=== PATIENT | female | born 1990 | race Caucasian/White ===

== ENCOUNTER → 2023-08-08 09:57 | Outpatient (BNVA) | payer OTHER, SELFPAY | PROVIDERS: Visit Provider Internal Medicine | DX: E07.9 Disorder of thyroid, unspecified (principal); R63.5 Abnormal weight gain; R53.83 Other fatigue | CPT/HCPCS: 36415; 84305; 84439; 84443; 86376; 86800 ==

== ENCOUNTER 2024-08-13 07:39 | Outpatient (CLI) | payer OTHER, SELFPAY ==
--- NOTE | 2024-08-13 07:52 | MR_ITS ---
WS: [id number] MRI RIGHT KNEE NONCONTRAST TECHNIQUE: Axial PD, coronal PD fat sat, coronal PD, sagittal PD, and sagittal PD fat-sat images obtained. CLINICAL INFORMATION: RIGHT KNEE PAIN COMPARISON: None. FINDINGS: Distal quadriceps and patellar tendons are intact. Hypertrophic patella. High- grade complete tear of the ACL. PCL appears intact. Bony fragments along the tibial eminence laterally has a chronic appearance on the prior radiograph presumably from prior ACL avulsion. Chronic thinning of the medial and lateral meniscus. Small suprapatellar effusion. Small tear along the posterior horn medial meniscus at the capsular insertion. Mild chondromalacia patella. Medial and lateral patellar retinacula appear intact. Edema in the popliteal fossa. Suspected partial tear of the popliteus with fluid in the popliteal fossa. Recommend correlation for posterolateral corner injury. Lateral collateral ligament appears intact. Normal medial c ollateral ligament. MR/MR knee RT wo con* [id number] IMPRESSION: 1. High-grade complete tear of the ACL. Normal PCL. 2. Osseous fragments along the tibial eminence likely due to prior ACL avulsio n. These appear well-corticated on the prior radiograph. 3. Partial tear involving the popliteus with fluid in the popliteal fossa. Rec ommend correlation for posterolateral corner injury. 4. Small tear involving the posterior horn medial meniscus at the capsular ins ertion. 5. Mild chondromalacia patella. Small suprapatellar effusion Outbridge grading: grade II: blister-like swelling/fraying of articular cartila ge extending to surface
== END 2024-08-13 07:40 | disposition home or self-care (01) ==
PROVIDERS: Visit Provider Nurse Practitioner Family
DX: S83.511A Sprain of anterior cruciate ligament of right knee, initial encounter (principal); S83.241A Other tear of medial meniscus, current injury, right knee, initial encounter; X58.XXXA Exposure to other specified factors, initial encounter; R93.6 Abnormal findings on diagnostic imaging of limbs; M22.41 Chondromalacia patellae, right knee; M25.461 Effusion, right knee; M89.38 Hypertrophy of bone, other site
CPT/HCPCS: 73721

== ENCOUNTER → 2024-08-15 08:33 | Outpatient (BNVA) | payer OTHER, SELFPAY | PROVIDERS: PCP Nurse Practitioner Family; Visit Provider Specialist | DX: M25.561 Pain in right knee (principal); S83.511A Sprain of anterior cruciate ligament of right knee, initial encounter; X58.XXXA Exposure to other specified factors, initial encounter | CPT/HCPCS: 73560; 73565 ==

== ENCOUNTER 2024-08-15 11:41 | Outpatient (CLI) | payer OTHER, SELFPAY | END 2024-08-15 11:42 | disposition home or self-care (01) | LOC: SPT 11:42 | PROVIDERS: PCP Nurse Practitioner Family; Visit Provider Specialist | DX: Z46.89 Encounter for fitting and adjustment of other specified devices (principal); S83.511D Sprain of anterior cruciate ligament of right knee, subsequent encounter; X58.XXXD Exposure to other specified factors, subsequent encounter | CPT/HCPCS: L1812 ==

== ENCOUNTER → 2024-09-27 06:27 | Day surgery (SDC) | payer OTHER, SELFPAY ==
[2024-09-27] VITALS (10 sets, daily range): BP systolic 96–122; BP diastolic 56–76; PULSE 90–104; RESP 10–18; TEMP 36.8–36.9; O2SAT 93–100; BMI 31.1
--- NOTE | 2024-09-27 06:53 | W.PM.OPSUD ---
Surgery/Procedure H&P Update DATE OF PROCEDURE: September 27, 2024 DATE H&P PERFORMED: 08/29/24 H&P UPDATE INFORMATION: I have reviewed H&P completed within last 30 days, I have examined patient prior to procedure and No changes to prior documentation PREOP DIAGNOSIS: Right knee complete ACL tear, medial meniscus tear PRIMARY INDICATION FOR PROCEDURE: Right knee complete ACL tear, medial meniscus tear PLANNED PROCEDURE: Operation Date: 09/27/24 09:30 Proposed Procedures p Knee Arthroscopy Knee Arthroscopy w/ Medial Menisectomy vs repair(Right) - DO tristan Rdz ACL Repair Anterior Cruciate Ligament Reconstruction(Right) - Yasir Osullivan DO
[2024-09-27] MEDS: sodium chloride 0.9% 1,000 ML 30 ML IV (07:02)
[2024-09-27] MEDS: scopolamine 1 mg PATCH 1 PATCH TRANSDERMA (07:02)
[2024-09-27] MEDS: acetaminophen 1,000 MG/100 ML PIGGYBACK 400 MG IV (07:03)
[2024-09-27] MEDS: ketorolac 30 mg/mL INJ IVP (07:03)
[2024-09-27 07:32] LABS: OR HCG Qualitative Urine Negative (Negative)
--- NOTE | 2024-09-27 08:53 | P.ANESASSM_ITS ---
Pre-Anesthetic Assessment Height/Weight: Height 5 ft 1 in Weight 165 lb Temp Pulse Resp BP Pulse Ox O2 Del Method 98.3 F 91 18 116/75 100 Room Air 09/27/24 06:46 09/27/24 06:46 09/27/24 06:46 09/27/24 06:46 09/27/24 06:46 09/27/24 06:46 Preop Diagnosis: Right knee complete ACL tear, medial meniscus tear Operation Date: 09/27/24 09:30 Proposed Procedures p Knee Arthroscopy Knee Arthroscopy w/ Medial Menisectomy vs repair(Right) - Yasir Osullivan DO s ACL Repair Anterior Cruciate Ligament Reconstruction(Right) - Yasir Osullivan DO Was Beta Les taken within 24 hours: N/A Was Clonidine taken within 24 hours: N/A Social No alcohol and No tobacco Exam alert, oriented x 3, clear to auscultation bilaterally and regular rate & rhythm Airway Submandibular: within normal limits Cervical ROM: within normal limits Mallampati: Class II Dentition: full Anesthetic Plan ASA status: 1 Anesthesia: General and Regional (specify below) Other: No prior issues with anesthesia NPO since yesterday evening No home meds Denies any cardiac or pulmonary issues METs greater than 4 Plan for general anesthesia with possible nerve block Medications/Allergies Home Medications ?Medication ?Instructions ?Recorded ?Confirmed ?Last Taken ?Type hinged knee brace, right #1 ea 08/15/24 09/26/24 Unkn own Rx Allergies Allergy/AdvReac Type Severity Reaction Status Date / Time No Known Allergies Allergy Verified 09/27/24 06:50 Current Medications Generic Name Dose Route Start Last Admin Trade Name Kaushalq PRN Reason Stop Dose Admin Sodium Chloride 1,000 mls @ 30 mls/hr 09/27/24 06:45 09/27/24 07:02 Sodium Chloride 0.9% IV 09/28/24 06:44 30 mls/hr .Q24H YISSEL Administration PFSH Anesthesia Social History Smoking and tobacco/nicotine status: never used tobacco/nicotine
[2024-09-27] MEDS: ceFAZolin 2,000 MG in sodium chloride 0.9% (plus) 50 ML 100 MG IV (09:13)
[2024-09-27] MEDS: lidocaine-epi 1% 20 mL INJ INJECTION (10:22)
[2024-09-27] MEDS: ROPivacaine 0.5% SDV 30 mL 150 MG INJECTION (10:22)
--- NOTE | 2024-09-27 11:29 | XR_ITS ---
WS: [id number] XR knee RT 1-2V 53297 REASON FOR EXAM: RT KNEE ACL REPAIR INTRAOPERATIVE IMAGES FINDINGS: Anchors for ACL repair are seen overlying the medial proximal tibia and lateral femoral condyle. XR/XR knee RT 1-2V 85032 IMPRESSION: ACL repair as above.
--- NOTE | 2024-09-27 12:10 | W.PM.BPON ---
Date of Procedure: 09/27/2024 Surgeon: Yasir Osullivan DO Coating Machine Feeder(s): Cali Osullivan PA-C Procedure(s) performed: Right knee diagnostic and surgical arthroscopy with ACL reconstruction with quad tendon allograft (Arthrex quad graft link) Right knee diagnostic and surgical arthroscopy with medial meniscus repair Right knee diagnostic and surgical arthroscopy with multiple loose bodies removal (totaling greater then 1 cm) Right knee diagnostic and surgical arthroscopy with extensive synovectomy (medial lateral patellofemoral compartments Findings of the procedure(s): Patient found to have a complete ACL tear as well as loose bony fragments from the avulsion and tear off of the tibial eminences these were free-floating loose bodies as a result these were subsequently removed atraumatically we then subsequently remove the remanent of the ACL. Patient was found to have a small longitudinal tear on the capsular attachment of the posterior and medial meniscus as result given the location of this and small aspect of the tear this was amenable for repair and subsequently underwent a meniscus repair and then we subsequently prepped our quad tendon allograft on the back table and subsequently performed ACL reconstruction with excellent fixation and stable Daniella's patient was then placed into a brace and awakened from anesthesia and taken to recovery in stable condition. Estimated blood loss: 15 mL Specimen(s) removed: Multiple loose bodies removed but not sent for specimen Post-operative diagnosis: Right knee ACL tear, loose bodies, medial meniscus tear, extensive synovitis
--- NOTE | 2024-09-27 12:18 | P.OP_ITS ---
Operative Report Date of procedure: September 27, 2024 Surgeon: Yasir Osullivan DO Supervisor Evaporator: Cali Osullivan PA-C: PA was necessary for assistance in this case with leg positioning retraction and protection of neurovascular structures, assistance with graft preparation as well as tunnel preparation and graft fixation. As well as assistance in wound closure and dressing application. Procedure: Preoperative diagnosis: Right knee ACL tear Right knee medial meniscus tear Post-op diagnosis: Same,loose bodies, extensive synovitis Procedure done: Right knee diagnostic and surgical arthroscopy with ACL reconstruction with quad tendon allograft (Arthrex quad graft link) Right knee diagnostic and surgical arthroscopy with medial meniscus repair Right knee diagnostic and surgical arthroscopy with multiple loose bodies removal (totaling greater then 1 cm) Right knee diagnostic and surgical arthroscopy with extensive synovectomy (medial lateral patellofemoral compartments Implants: 1 meniscal fiber stitch Arthrex Arthrex?quad?tendon allograft set with internal brace ( Arthrex quad graftlink) 63mm total graft length with 10.5mm on femur side and 10.0mm on tibia side 4.75 swivel lock for internal brace Surgeon: Yasir Osullivan Estimated blood loss (mL): 15mL tourniquet 120min IV fluids: See anesthesia record Complications: None Findings: See operative report narrative Condition: stable Disposition: same day Brief History: Patient is a pleasant 34-year-old femal who is been seen and worked up in the outpatient setting after sustaining a injury to right knee.? Pt? MRI shows complete tear of the?ACL?of the right knee as well as tear of the medial meniscus.? Pt has done PT and regained full range of motion we had detailed discussion in the office about pt MRI findings as well as planned procedure.? Detailed discussion with patient in the office about these findings as well as my surgical plan.? At this point time I would recommend a right knee diagnostic and surgical arthroscopy with arthroscopic assisted?ACL?reconstruction with quad tendon allograft and medial meniscus repair vs Partial medial menisectomy.? Detailed out the ins and outs of the procedure.? Pt understand the risk benefits complications alternatives of treatment options and agreed to proceed with surgery.? The risks include but are not limited to make it better, make it worse, blood clot, infection, arthrofibrosis and stiffness of the knee, deep creased function of the knee, rerupture, retear of the meniscal repair, further surgery, early arthritis and with these understandings they agree to proceed with surgical intervention.? All questions answered.? Consent was obtained in the preop. Procedure: Patient was seen evaluated in the preoperative holding area.? The consent was reviewed with the patient.? The correct extremity was then marked.? Patient was seen evaluate by the anesthesia and preoperative team.? Patient was then taken to the operative suite was then placed onto the OR table and underwent anesthesia per the anesthesia department.? All bony prominences were well-padded patient was appropriately secured to the bed.? The left lower extremity was then secured to an armboard.? The bottom of the table was then dropped.? Patient had a nonsterile tourniquet applied to the right lower extremity.? A arthroscopic post was then placed to the lateral aspect of the right knee.? Once completely secured to the bed patient's right knee was then examined under anesthesia.? Pt was found to have a positive Daniella's as well as a positive pivot shift.?This point time the right knee was then prepped and draped in standard orthopedic fashion.? Final timeout performed.? Patient received appropriate preoperative antibiotics. Esmarch was used to exsanguinate the right lower extremity.? Tourniquet was insufflated to 250 mmHg.? Standard 2 incision vertical arthroscopy portals were made.? Initially starting laterally introduced the trocar and perform a diagnostic and surgical arthroscopy visualizing the suprapatellar pouch which was free of loose bodies.? We evacuated a small hemarthrosis.? We then visualized the patellofemoral joint which was grade 1 chondromalacia.? Moved into the medial lateral gutters which were pristine with no evidence of loose bodies.? We then evaluated the medial compartment which was found to have grade 1 chondromalacia.? I utilized a spinal needle outside in technique to establish my medial portal.? This was then established as well as shaver used to complete a extensive synovectomy to allow for easy graft passage and shuttling a suture.? This was performed of the medial suprapatellar as well as lateral compartments.? Next I utilized a probe to evaluate the medial compartment the root of the medial meniscus was intact.? Patient was found to have a longitudinal tear at the meniscocapsular junction in the posterior horn. This had hypermobility of the medial meniscus and this was torn in the red red zone. As result given this location patient's young age this was amenable for a repair. I subsequently switched the arthroscopic camera into the medial portal and then planned for an all inside technique. I subsequently placed a half pipe in the lateral portal incision site and then subsequently guided a standard Arthrex fiber stitch into the joint. Patient's tear was small in nature this would be amenable for a single horizontal mattress stitch. As result I subsequently placed a single fiber stitch in horizontal mattress fashion and subsequently tension both loops to where this had excellent fixation and securing the tear back up against the capsule. Excess suture was then cut and then subsequently I then probed the tear which had excellent fixation and no hypermobility and closure of the tear site. This completed the medial meniscus repair. Moved into the intercondylar notch and significant rupture of the?ACL?was noted.? I introduced the arthroscopic shaver to debride the?ACL?back to the footprint of the femur as well as of the tibia.? Of note patient did have 2 loose body bony fragments of the tibial eminences that were loose and free- floating these did scarring to some of the scar tissue as well as the remnants of the ACL these were subsequently grabbed with arthroscopic graspers and removed in their entirety these both and removed all of these were greater than 1 cm in size. This point time moved into the lateral compartment to evaluate the lateral meniscus tear.? Patient's cartilage had grade I chondromalacia. The lateral meniscus was then inspected and found to be intact with no evidence of tear. This completed my work in the lateral compartment I then subsequently returned to the patellofemoral space and once again had grade I chondromalacia in the patellofemoral space I utilized arthroscopic shaver to perform extensive synovectomy of all 3 compartments in preparation for graft placement. At this point in time I then called for our Arthrex quad graft link which was then assisted with my preparation with my PA. This was then warmed and then the graft was subsequently prepped the graft length was 63 mm in length with the tibial side being 10 mm in thickness and the femoral side being 10.5 mm in thickness. Once her graft was appropriately sized and measured these were then placed on tension and subsequently Arthrex internal brace was then placed as well the graft was placed under tension and a compressive Arthrex graft usually in place to keep the graft compressed in preparation for passage. At this point I moved into preparation for femoral tunnels.? I then introduced arthroscopic shaver to debride the femoral origin of the?ACL?I utilized electrocautery to maintain access in the retrograde she had space.?? I then performed a notchplasty with a bur just to identify appropriate landmarks and easier shuttle passing.? This would also provide excellent stimulation and healing for the meniscal repair and?ACL?reconstruction.? This point time it utilize a thermal wand to edy my planned anatomic femoral tunnel.? At this point time introduced the femoral tunnel guide which was set to appropriate angle and then subsequently made a small incision tamped our guide directly down to bone laterally and then the drill was then inserted into the intercondylar notch at my planned femoral tunnel spot.? I then utilized the reverse reamer drill bit to reverse ream a 10.5mm tunnel with roughly 25 mm to allow for back tensioning if needed later.? This completed my femoral tunnel.? The femoral tunnel was then evacuated of its bony debris utilizing arthroscopic shaver.? I then introduced a FiberWire as my shuttling stitch for the femur and this was clamped utilizing a hemostat. ? Next I then introduced my tibial tunnel guide which was set to appropriate length this was centered directly over the anatomic tibial footprint.? Once I like my position I then placed my guide on the skin plan my incision made a small incision with plan for later placement and the tibia.? Drill sleeve was then tapped into place the drill was then advanced into the anatomic footprint of the tibia. Once drilled i took knee thru ROM to confirm no impingement and had satisfactory placement of tunnel. the flip cutter was then placed at 10 mm for the tunnel with and a 30 mm drill tunnel was then placed to allow for appropriate back tensioning as needed.? Once this was done I then introduced the arthroscopic shaver to debride all bony debris throughout the tibial tunnel to decrease from any chances of cyclops lesions.? Once this was done I then shuttled my fiber wire suture through the tibial tunnel and pulled this out of the medial arthroscopic portal.? I then grabbed the femoral shuttling suture and pulled this out the anterior medial portal as well.? This point time we are ready to pass our graft.? I then appropriately marked our drill tunnel length on her suture and then shuttled our?quad?autograft femoral side utilizing my femoral shuttling suture the button was then flipped and I utilized mini C arm to confirm this was directly onto bone.? Once this was flipped and appropriately tensioned with the knee in flexion I then utilized the white tensioning sutures to bring the 15 mm graft plug and appropriate position once this was appropriately secured this was then left alone and I subsequently moved to shuttling the tibia shuttling sutures for my tibial portion of my graft.? This was then shuttled through and then pulled into the tibial tunnel under direct arthroscopic visualization.? Next I then placed the knee into full extension I then inserted the tibial button which the suture was then placed into as well as shuttling my internal brace suture through.? First I appropriately tensioned my tibial graft plug secured this down to bone and cycled multiple times of tension.? Once preliminary fixed I then range the knee over 30 times performed a Daniella and anterior drawer to get creep out of the graft system.? Once this was done I then went back up to the femur with the knee in flexion repeat tensioned so this as well as place the knee back into extension and repeat tension to my tibial button and graft until both had excellent graft tension and fixation.? At this point time I then took my internal brace sutures which were then loaded onto a 4.75 swivel lock.? I then identified the medial face of the tibia in a perpendicular fashion utilize their stop drill guide for the swivel lock and then appropriately tapped and impacted my 4.75 swivel lock internal brace with excellent fixation while the knee was held in extension.? Extra suture was then cut.? At this point time I then tied my tensioning sutures of the tibia over my tibial button and then the sutures were cut.? Suture on the femur side were then tied and cut. This completed my?ACL?reconstruction this was then taken through a Daniella's which had a significant firm endpoint with no evidence of laxity he had no evidence of a pivot shift.? This point in final images were then taken arthroscopically.Final mini c arm images confirmed satisfactory ACL reconstruction with secured button fixation.? All fluid was suctioned out of the knee.? Tourniquet was deflated.? Incisions were then closed with 0 Vicryl 2-0 Vicryl and a running Monocryl suture.? I then placed Steri-Strips over the incisions.? Dressings were then applied of 4 x 4's ABD soft roll and an Fracisco wrap.? Patient was then secured and appropriately fitted for?ACL?brace locked in extension prior to waking up.? Pt was then transported to the hospital table he was waken up from anesthesia and taken to PACU in stable condition. Disposition: Patient recover in PACU in stable condition.? Patient and family will be given appropriate discharge instructions as well as DVT prophylaxis pain medication postoperatively.? We will get pt started on her?ACL?reconstruction with meniscal repair protocol.? We will work [id number] with therapy department.? Patient as well as parents understand and agree with current plan.? All questions answered at this time.? We will see pt in office in 2 weeks for follow-up.?
--- NOTE | 2024-09-27 12:33 | PM.PACU ---
PACU note Narrative: Patient is a 34-year-old female just underwent a right knee ACL repair and knee scope. Pt transferred to PACU in stable condition. Dressing is dry. pt is awake and alert. pt can wiggle toes and plantarflex and dorsiflex foot. pt able to perform straight leg raise, Femoral nerve intact. Distal pulses are palpable toes are warm and well-perfused. Cap refill is normal and under 2 seconds. Sensation to foot is intact. Pain is controlled. Exam: awake Disposition: discharged
--- NOTE | 2024-09-27 13:14 | PC.NURSE ---
pt took pain pill when delivered from main campus pharmacy
--- NOTE | 2024-09-27 14:20 | ANE.PACU2 ---
Inpatient post-anesthesia follow up: Airway intact: Yes Vital signs: Temperature 98.5 F Pulse Rate 93 Respiratory Rate 16 Blood Pressure 119/69 Pulse Oximetry 98 Oxygen Delivery Me thod Room Air Oxygen Flow Rate Fraction of Inspir ed Oxygen Hydration adequate: Yes Nausea and vomiting: No Pain level: 1 Mental status: Baseline
== END | disposition home or self-care (01) ==
PROVIDERS: Student in an Organized Health Care Education/Training Program; PCP Nurse Practitioner Family; Visit Provider Student in an Organized Health Care Education/Training Program
PROC: (CPT 29870; principal; 2024-09-27 09:10)
PROC: (CPT 27407; 2024-09-27 09:10)
PROC: (CPT 29888; 2024-09-27 09:10)
PROC: (CPT 29888; 2024-09-27 09:10)
DX: S83.511A Sprain of anterior cruciate ligament of right knee, initial encounter (principal); S76.111A Strain of right quadriceps muscle, fascia and tendon, initial encounter; S83.241A Other tear of medial meniscus, current injury, right knee, initial encounter; M23.41 Loose body in knee, right knee; M65.961 Unspecified synovitis and tenosynovitis, right lower leg; X58.XXXA Exposure to other specified factors, initial encounter
CPT/HCPCS: 29888; 29882; 73560; 76000; 81025; C1713; C1762; J0131; J0690; J1100; J1171; J1885; J2250; J2405; J2704; J2795; J3010; J7030; J9999

== ENCOUNTER 2024-10-02 12:01 | Outpatient (RCR) | payer OTHER, SELFPAY | END 2024-10-22 23:59 | disposition home or self-care (01) | LOC: SPT 12:01 | PROVIDERS: Visit Provider Student in an Organized Health Care Education/Training Program | DX: M23.611 Other spontaneous disruption of anterior cruciate ligament of right knee (principal) | CPT/HCPCS: 97110; 97161 ==

== ENCOUNTER 2024-10-23 05:00 | Outpatient (RCR) | payer OTHER, SELFPAY | END 2024-11-22 23:59 | disposition home or self-care (01) | LOC: SPT 05:00 | PROVIDERS: PCP Nurse Practitioner Family; Visit Provider Student in an Organized Health Care Education/Training Program | DX: Z98.890 Other specified postprocedural states (principal) | CPT/HCPCS: 97110 ==

== ENCOUNTER → 2024-11-07 14:19 | Outpatient (BNVA) | payer OTHER, SELFPAY | PROVIDERS: PCP Nurse Practitioner Family; Visit Provider Student in an Organized Health Care Education/Training Program | DX: Z98.890 Other specified postprocedural states (principal); S83.241D Other tear of medial meniscus, current injury, right knee, subsequent encounter; X58.XXXD Exposure to other specified factors, subsequent encounter | CPT/HCPCS: 73562 ==

== ENCOUNTER 2024-11-23 05:00 | Outpatient (RCR) | payer OTHER, SELFPAY | END 2024-12-23 23:59 | disposition home or self-care (01) | LOC: SPT 05:00 | PROVIDERS: PCP Nurse Practitioner Family; Visit Provider Student in an Organized Health Care Education/Training Program | DX: Z98.890 Other specified postprocedural states (principal) | CPT/HCPCS: 97110 ==